=== PATIENT | male | born 1955 | race Caucasian/White ===

== ENCOUNTER 2019-03-19 18:58 | Emergency (ER) | payer BC ==
[2019-03-19 19:16] VITALS: BP 112/67; PULSE 74; TEMP 98.7; BMI 33.0
--- NOTE | 2019-03-19 19:16 | PDOC ---
Rapid Medical Evaluation Medical Evaluation: Allergies Allergy/AdvReac Type Severity Reaction Status Date / Time Penicillins Allergy Verified 02/09/14 23:12 I have performed a brief in-person evaluation of this patient. The patient presents with a chief complaint of: R hand swelling x 3 days; denies fever; hx of DM, heart disease; denies trauma, possible bite Pertinent physical exam findings: R hand swelling, induration along ulnar aspect of hand; +redness and warmth I have ordered the following: R hand xray; patient refused pain meds in triage The patient will proceed to the ED for further evaluation. 03/19/19 19:12
--- NOTE | 2019-03-19 19:54 | PDOC ---
*Physical Exam - Vital Signs Last Vital Signs Temp Pulse Resp BP Pulse Ox 98.7 F 74 19 112/67 99 03/19/19 19:12 03/19/19 19:12 03/19/19 19:12 03/19/19 19:12 03/19/19 19:12 ED Treatment Course - LABORATORY CBC & Chemistry Diagram: 03/19/19 20:00 03/19/19 20:00 Medical Decision Making - Medical Decision Making 03/19/19 19:54 Patient seen by the advanced practice provider under my direct supervision. Ancillary testing reviewed as necessary. I agree with plan as outlined by the advanced practice provider. Discharge - Discharge Information Problems reviewed: Yes Clinical Impression/Diagnosis: Infected hand - Follow up/Referral - Patient Discharge Instructions - Post Discharge Activity
--- NOTE | 2019-03-19 20:05 | PDOC ---
History of Present Illness - General Chief Complaint: Wound Stated Complaint: SWOLLEN HAND Time Seen by Provider: 03/19/19 19:12 History Source: Patient Exam Limitations: No Limitations - History of Present Illness Initial Comments: 03/19/19 19:37 Patient is a 63 year old male with h/o congenital malformed thumb left hand, DM , psoriasis hands, A-Fib, Vascular surgery leg, c/o right hand swelling, redness , and pain. States when he was a work 4 days ago felt something of hand and brushed it off, did not see what it was. He washed his hand but then the area became itchy next day. Two days ago the left hand became swollen, reddened and painful, states a small amount of discharge came out from the area. Denies fever, chills, nausea, vomiting. PMD: Dr. Vani Madrid PMHX: as above PSOCHX: neg etoh, neg cig, neg drug. ALL: NKDA GENERAL/CONSTITUTIONAL: [No fever or chills. No weakness. No weight change.] HEAD, EYES, EARS, NOSE AND THROAT: [No change in vision. No ear pain or discharge. No sore throat.] CARDIOVASCULAR: [No chest pain or shortness of breath.] RESPIRATORY: [No cough, wheezing, or hemoptysis.] GASTROINTESTINAL: [No nausea, vomiting, diarrhea or constipation. No rectal bleeding.] GENITOURINARY: [No dysuria, frequency, or change in urination.] MUSCULOSKELETAL: [(+) joint or muscle swelling or pain. No neck or back pain.] SKIN AND BREASTS: [(+) rash or easy bruising.] NEUROLOGIC: [No headache, vertigo, loss of consciousness, or loss of sensation.] PSYCHIATRIC: [No depression or anxiety.] ENDOCRINE: [No increased thirst. No abnormal weight change.] HEMATOLOGIC/LYMPHATIC: [No anemia, easy bleeding, or history of blood clots.] ALLERGIC/IMMUNOLOGIC: [No hives or skin allergy. No latex allergy.] GENERAL: [The patient is awake, alert, and fully oriented, in mild distress.] HEAD: [Normal with no signs of trauma.] EYES: [Pupils equal, round and reactive to light, extraocular movements intact, sclera anicteric, conjunctiva clear.] ENT: [Ears normal, nares patent, oropharynx clear without exudates. Moist mucous membranes.] NECK: [Normal range of motion, supple without lymphadenopathy, JVD, or masses.] LUNGS: [Breath sounds equal, clear to auscultation bilaterally. No wheezes, and no crackles.] HEART: [Regular rate and rhythm, normal S1 and S2 without murmur, rub.] ABDOMEN: [Soft, nontender, normoactive bowel sounds. No guarding, no rebound. No masses.] EXTREMITIES: [Decreased range of motion to left hand unable to make a fist, (+) swelling. No clubbing or cyanosis. No cords, erythema, or tenderness, congenital deformity of the thumb appendage left hand.] NEUROLOGICAL: [Cranial nerves II through XII grossly intact. Normal speech, normal gait.] PSYCH: [Normal mood, normal affect.] SKIN: [Warmth to the right hand over the 3rd-5th MC, firm, tender, swelling over the 5th, (+) psoriatic rash b/l hands] Past History - Past Medical History Allergies/Adverse Reactions: Allergies Allergy/AdvReac Type Severity Reaction Status Date / Time Penicillins Allergy Verified 02/09/14 23:12 Home Medications: Ambulatory Orders Albuterol 0.083% Nebulizer Natalie [Ventolin 0.083%] 1 neb NEB Q4H PRN 02/09/14 Ipratropium 0.02% Nebulizer [Atrovent] 1 neb NEB PRN PRN 02/09/14 predniSONE [Deltasone -] 20 mg PO DAILY PRN 02/09/14 Clindamycin [Cleocin -] 300 mg PO Q6HPO #28 capsule 03/19/19 Asthma: Yes Cardiac Disorders: Yes COPD: No Diabetes: Yes (DIET CONTROLLED) - Psycho Social/Smoking Cessation Hx Smoking History: Never smoked Hx Alcohol Use: No Substance Use Type: None *Physical Exam - Vital Signs Last Vital Signs Temp Pulse Resp BP Pulse Ox 98.7 F 74 19 112/67 99 03/19/19 19:12 03/19/19 19:12 03/19/19 19:12 03/19/19 19:12 03/19/19 19:12 ED Treatment Course - LABORATORY CBC & Chemistry Diagram: 03/19/19 20:00 03/19/19 20:00 Medical Decision Making - Medical Decision Making 03/19/19 19:37 Patient is a 63 year old male with h/o congenital malformed thumb left hand, DM , psoriasis hands, A-Fib, Vascular surgery leg, c/o right hand swelling, redness , and pain. States when he was a work 4 days ago felt something of hand and brushed it off, did not see what it was. He washed his hand but then the area became itchy next day. Two days ago the left hand became swollen, reddened and painful, states a small amount of discharge came out from the area. Denies fever, chills, nausea, vomiting. Symptoms consistent with abscess with surrounding cellulitis. Patient has decreased mobility of the hand rule out tenosynovitis. Labs, Clindamycin X-ray done [facility] Discussed with patient the need for hand evaluation however he is not willing to be transferred to [place]. Patient wants to sign out and go to [facility] where he works. X-ray reviewed no acute findings Lab work reviewed noted to have eosinophils at 20.5% 03/19/19 21:34 Patient is decided to sign out AMA states he will go to [facility] tomorrow. Offered transfer to [facility] however he politely refused. I discussed the physical exam findings, ancillary test results and final diagnoses with the patient. I answered all of the patient's questions. The patient was satisfied with the care received and felt comfortable with the discharge plan and treatment plan. The Patient agrees to follow up with the primary care physician within 24-72 hours. Discharge - Discharge Information Problems reviewed: Yes Clinical Impression/Diagnosis: Infected hand Condition: Stable Disposition: AGAINST MEDICAL ADVICE - Additional Discharge Information Prescriptions: Clindamycin [Cleocin -] 300 mg PO Q6HPO #28 capsule - Follow up/Referral - Patient Discharge Instructions Patient Printed Discharge Instructions: DI for Wound Infection Additional Instructions: You are signing out AMA (AGAINST MEDICAL ADVICE). It is important that you follow-up for the hand infection especially since you are diabetic. We have sent a prescription to your pharmacy for clindamycin, take it as prescribed. Warm compresses to the hand in 20-minute intervals. You must see the hand specialist or your primary care doctor in 24 hours. - Post Discharge Activity Work/Back to School Note: Back to Work
[2019-03-19] MEDS ORDERED: CLINDAMYCIN 600MG PREMIX IVPB 600 MG/50 ML BAG IVPB ONE ×2 (20:06→20:11)
[2019-03-19] MEDS ORDERED: SODIUM CHLORIDE 0.9% 500 ML INFUS.BAG IV ONE (20:06)
[2019-03-19 20:19] LABS: BASO % 1.3 % (0-2.0); EOS % 20.5 % (0-4.5); HEMATOCRIT 39.6 % (35.4-49); HEMOGLOBIN 13.2 GM/dL (11.7-16.9); LYMPH % 28.7 % (8-40); MCH 31.2 pg (25.7-33.7); MCHC 33.3 g/dl (32.0-35.9); MEAN CELL VOLUME 93.9 fl (80-96); MEAN PLT VOLUME 8.5 fl (7.5-11.1); MONO % 6.5 % (3.8-10.2); PLATELET COUNT 240 K/MM3 (134-434); RBC 4.22 M/mm3 (4.00-5.60); RDW 13.8 % (11.9-15.9); WHITE BLOOD COUNT 6.7 K/mm3 (4.0-10.0)
[2019-03-19 21:13] LABS: ALBUMIN 3.6 g/dl (3.4-5.0); BILIRUBIN,TOTAL 0.3 mg/dL (0.2-1); BLOOD UREA NITROGEN 15.6 mg/dL (7-18); CREATININE 1.3 mg/dL (0.55-1.3); TOT PROT 7.7 g/dl (6.4-8.2)
[2019-03-19 21:14] LABS: POTASSIUM 4.4 mmol/L (3.5-5.1)
[2019-03-19 21:17] LABS: PLATELET ESTIMATE ADEQUATE; TEAR DROP CELLS 1+
== END 2019-03-19 21:48 | disposition left against medical advice (07) ==
LOC: JER 18:58
DX: L03.113 Cellulitis of right upper limb (principal); L02.511 Cutaneous abscess of right hand; J45.909 Unspecified asthma, uncomplicated; E11.9 Type 2 diabetes mellitus without complications; Z88.0 Allergy status to penicillin
CPT/HCPCS: 36415; 73130-TC-RT-FY; 80053; 85025; 99283-25